=== PATIENT | female | born 1995 | race Caucasian/White ===

== ENCOUNTER 2017-04-28 09:34 | Emergency (ER) | payer BC ==
[~2017-04-28] VITALS: Ht 165.1 cm; Wt 63.3 kg
[2017-04-28 09:37] VITALS: Ht 165.1 cm; Wt 63.3 kg
[2017-04-28] MEDS ORDERED: BCPILLS PO (09:54)
[2017-04-28] MEDS ORDERED: KETOROLAC TROMETHAMINE 30 MG/ML VIAL IV STA (10:34)
[2017-04-28] MEDS ORDERED: SODIUM CHLORIDE 0.9% 1000ML 1,000 ML IV STA (10:34)
--- NOTE | 2017-04-28 10:41 | EMERGENCY ROOM VISIT NOTE ---
History Report prepared by Nanette: Ivette Mansfield Under the Supervision of: Dr. Chao Aguilera M.D. First contact with patient: 10:18 Chief Complaint: SORETHROAT Stated Complaint: INFLAMED TONSIL History of Present Illness The patient is a 21 year old female who presents to the Emergency Room with complaints of a constant sore throat that started 4 days ago. The patient notes a difficulty eating and drinking. She denies any fever, chills, nausea, vomiting , cough, congestion, or difficulty breathing. The patient went to [facility] this morning and they referred her to the ED for a potential throat abscess. The patient notes a recent history of strep throat, tonsillitis , and mononucleosis. Her last menstrual period was on April 19. Source of History: patient Onset: 4 days ago Position: throat Quality: other (sore) Associated Symptoms: No fevers, No chills, No cough, No nausea, No vomiting Note: The pt denies congestion or difficulty breathing. She notes difficulty drinking and eating. Review of Systems See HPI for pertinent positives and negatives. A total of ten systems were reviewed and were otherwise negative. Past Medical & Surgical Medical Problems: (1) Mononucleosis (2) Strep throat (3) Tonsillitis Family History no pertinent family history stated. Social History Smoking Status: Never Smoker Housing Status: lives with roommate Occupation Status: [employer] student Current/Historical Medications Scheduled Control Pills ( Control Pills), 1 TAB PO DAILY Allergies Coded Allergies: No Known Allergies (Unverified , 04/28/17) Physical Exam Vital Signs Date Time Temp Pulse Resp B/P (MAP) Pulse Ox O2 Delivery O2 Flow Rate FiO2 04/28/17 14:08 68 16 117/81 98 04/28/17 13:15 66 20 109/75 99 Room Air 04/28/17 11:19 36.7 53 20 109/74 100 Room Air 04/28/17 09:40 92 Room Air 04/28/17 09:37 36.7 79 16 111/69 92 Room Air Physical Exam GENERAL: Awake, alert, well-appearing, in no distress HENT: Normocephalic, atraumatic. Mild injection posterior pharynx. Mild asymmetry edema with left peritonsillar region enlarged. EYES: Normal conjunctiva. Sclera non-icteric. NECK: Supple. No nuchal rigidity. FROM. No JVD. RESPIRATORY: Clear to auscultation. CARDIAC: Regular rate, normal rhythm. Extremities warm and well perfused. Pulses equal. ABDOMEN: Soft, non-distended. No tenderness to palpation. No rebound or guarding. No masses. RECTAL: Deferred. MUSCULOSKELETAL: Chest examination reveals no tenderness. The back is symmetrical on inspection without obvious abnormality. There is no CVA tenderness to palpation. No joint edema. LOWER EXTREMITIES: Calves are equal size bilaterally and non-tender. No edema. No discoloration. NEURO: Normal sensorium. No sensory or motor deficits noted. SKIN: No rash or jaundice noted. Medical Decision & Procedures Laboratory Results 04/28/17 10:45 Red Blood Count 4.27, Mean Corpuscular Volume 85.9, Mean Corpuscular Hemoglobin 27.9, Mean Corpuscular Hemoglobin Concent 32.4, Mean Platelet Volume 10.1, Neutrophils (%) (Auto) 63.2, Lymphocytes (%) (Auto) 25.5, Monocytes (%) (Auto) 7.1, Eosinophils (%) (Auto) 3.6, Basophils (%) (Auto) 0.4, Neutrophils # (Auto) 3.30, Lymphocytes # (Auto) 1.33, Monocytes # (Auto) 0.37, Eosinophils # (Auto) 0.19, Basophils # (Auto) 0.02 04/28/17 10:45 Test 04/28/17 10:45 White Blood Count 5.22 K/uL (4.8-10.8) Red Blood Count 4.27 M/uL (4.2-5.4) Hemoglobin 11.9 g/dL (12.0-16.0) Hematocrit 36.7 % (37-47) Mean Corpuscular Volume 85.9 fL (80-100) Mean Corpuscular Hemoglobin 27.9 pg (25-34) Mean Corpuscular Hemoglobin Concent 32.4 g/dl (32-36) Platelet Count 231 K/uL (130-400) Mean Platelet Volume 10.1 fL (7.4-10.4) Neutrophils (%) (Auto) 63.2 % Lymphocytes (%) (Auto) 25.5 % Monocytes (%) (Auto) 7.1 % Eosinophils (%) (Auto) 3.6 % Basophils (%) (Auto) 0.4 % Neutrophils # (Auto) 3.30 K/uL (1.4-6.5) Lymphocytes # (Auto) 1.33 K/uL (1.2-3.4) Monocytes # (Auto) 0.37 K/uL (0.11-0.59) Eosinophils # (Auto) 0.19 K/uL (0-0.5) Basophils # (Auto) 0.02 K/uL (0-0.2) RDW Standard Deviation 44.8 fL (36.4-46.3) RDW Coefficient of Variation 14.3 % (11.5-14.5) Immature Granulocyte % (Auto) 0.2 % Immature Granulocyte # (Auto) 0.01 K/uL (0.00-0.02) Anion Gap 5.0 mmol/L (3-11) Est Creatinine Clear Calc Drug Dose 80.8 ml/min Estimated GFR () 93.9 Estimated GFR (Non- 81.0 BUN/Creatinine Ratio 13.0 (10-20) Calcium Level 8.8 mg/dl (8.5-10.1) Laboratory results reviewed by me Medications Administered Medications (Trade) Dose Ordered Sig/Chente Route Start Time Stop Time Status Last Admin Dose Admin Sodium Chloride 1,000 ml @ 999 mls/hr Q1H1M STAT IV 04/28/17 10:34 04/28/17 11:34 DC 04/28/17 10:50 999 MLS/HR Ketorolac Tromethamine (Toradol Inj) 30 mg NOW STAT IV 04/28/17 10:34 04/28/17 10:37 DC 04/28/17 10:50 30 MG Dexamethasone Sodium Phosphate (Decadron Inj) 10 mg NOW ONCE IV 04/28/17 10:45 04/28/17 10:46 DC 04/28/17 10:50 10 MG ED Course 1031: The patient was evaluated in room A4B. A complete history and physical exam was performed. 1034: Toradol Inj 30 mg IV,Sodium Chloride 1000 ml @ 999 mls/hr IV. 1045: Decadron Inj 10 mg IV. 1311: Bedside Ultrasound with equivocal phlegmon vs abscess. 1331: I discussed the patient's case with Dr. Fay-ENT. He said send the patient to see him. 1345: Updated the patient with being referred to ENT. 1402: I reevaluated the patient. Discussed results and discharge instructions: She verbalized understanding and agreement. The patient is ready for discharge. Medical Decision I reviewed the patient's past medical history, medications, and the nursing notes as described above. Differential diagnosis includes: pharyngitis, peritonsillar abscess, retropharyngeal abscess, and URI. Patient is a 21-year-old woman with a past medical history of recurrent pharyngitis, tonsillitis who presents to emergency department with worsening sore throat and swelling with painful swallowing history of present illness. Arrival of the patient has mild edema in the posterior pharynx that is asymmetric with enlargement of the left peritonsillar area. Otherwise no tongue elevation, trismus, or pain with tracheal manipulation. Labs unremarkable with WBC within normal limits. Bedside ultrasound with equivocal findings of phlegmon versus abscess. Case was discussed with Dr. Leslie, ENT , will be able to see the patient in his office promptly today. Patient previously feeling improved after Toradol and dexamethasone. Antibiotics deferred as Dr. Shannon will provide prescription after his evaluation. Findings and plan for ENT follow-up promptly after discharge d/w patient. Patient agreeable and d/c'd per discharge instructions. Medication Reconcilliation Current Medication List: was personally reviewed by me Blood Pressure Screening Patient's blood pressure: Normal blood pressure Consults Time Called: 1330 Consulting Physician: Dr. Fay-ENT Returned Call: [phone] Discussed the patient's case. He said send the patient to see him. Impression Primary Impression: Peritonsillar abscess Scribe Attestation The scribe's documentation has been prepared under my direction and personally reviewed by me in its entirety. I confirm that the note above accurately reflects all work, treatment, procedures, and medical decision making performed by me. Departure Information Dispostion Home / Self-Care Referrals No Doctor, Assigned (PCP) Forms HOME CARE DOCUMENTATION FORM, IMPORTANT VISIT INFORMATION Patient Instructions ED Peritonsillar Abscess, My [facility] Additional Instructions Please follow up with ENT, Dr. Fay, this afternoon for evaluation and possible drainage. [address], [address] [place] [address] Otherwise, your exam and lab results did not show signs of an emergent condition did not show signs of an emergent condition at this time. Return to the emergency department for worsening symptoms as described in the accompanying instructions.
[2017-04-28] MEDS ORDERED: DEXAMETHASONE SOD INJ 10 MG/ML VIAL IV ONE (10:45)
[2017-04-28 11:00] LABS: BASO % 0.4 %; BASO ABS # 0.02 K/uL (0-0.2); COMPLETE YES; EOS % 3.6 %; HEMATOCRIT 36.7 % (37-47); IG% 0.2 %; LYMPH % 25.5 %; LYMPH ABS # 1.33 K/uL (1.2-3.4); MEAN CELL VOLUME 85.9 fL (80-100); MEAN CORPUSCULAR HEMOGLOBIN 27.9 pg (25-34); MEAN CORPUSCULAR HGB CONC 32.4 g/dl (32-36); MEAN PLATELET VOLUME 10.1 fL (7.4-10.4); MONO % 7.1 %; NEUT % 63.2 %; PLATELET COUNT 231 K/uL (130-400); RED BLOOD COUNT 4.27 M/uL (4.2-5.4); WHITE BLOOD COUNT 5.22 K/uL (4.8-10.8)
[2017-04-28 11:17] LABS: CALCIUM 8.8 mg/dl (8.5-10.1); POTASSIUM 3.9 mmol/L (3.5-5.1)
[2017-04-28 11:19] VITALS: TEMP 36.7
[2017-04-28 14:08] VITALS: BP 117/81; PULSE 68; O2SAT 98
== END 2017-04-28 14:08 | disposition home or self-care (01) ==
LOC: C.EDB 09:39 → C.EDA 14:08
DX: J36 Peritonsillar abscess (principal)